=== PATIENT | female | born 1985 | race Caucasian/White ===

== ENCOUNTER → 2018-05-15 | Outpatient (CLI) | payer MEDICAID ==
--- NOTE | 2018-05-15 12:29 | MR ---
MRI CERVICAL AND THORACIC SPINE: CLINICAL HISTORY: Neck pain and white matter changes TECHNIQUE: Multiplanar, multisequence imaging of the cervical spine and thoracic spine was performed without IV contrast. COMPARISON: None FINDINGS: Sagittal images of the cervical spine show the craniocervical junction to appear within nor mal limits. The cervical and upper thoracic spinal cord is normal in course, caliber, and signal. V ertebral alignment is anatomic. The vertebral body and intravertebral disk heights are normal. The bone marrow signal intensity is within normal limits. There is a focal disc herniation with 6 mm caudal extrusion at C5-C6 without spinal canal stenosis no r neural foraminal narrowing. There are broad-based disc bulges and disc desiccation at C3-C4, C4-C5 and C6-C7. Axial images show there is no spinal canal stenosis, neural foraminal narrowing, or spinal cord compr omise at any cervical level. No significant degenerative disc disease, spinal canal stenosis, nor neural foraminal narrowing is se en throughout the thoracic spine. Thoracic spine vertebral bodies maintain normal vertebral body heig hts and alignment. No focal disc herniation. IMPRESSION: 1. Central disc herniation with 6 mm caudal extrusion at C5-C6. No resultant spinal canal stenosis no r neural foraminal narrowing. 2. No white matter change within the cervical nor thoracic spinal cord to suggest demyelinating plaqu e.
--- NOTE | 2018-05-15 12:39 | MR ---
EXAMINATION TYPE: MR brain wo/w con DATE OF EXAM: 05/15/2018 COMPARISON: Cervical and thoracic spine MRI of the same date. HISTORY: White matter changes / cervicalgia / Pain TECHNIQUE: Multiplanar, multisequence images of the brain and brainstem is performed without and with IV contras t, utilizing 6 mL intravenous Gadavist . FINDINGS: Diffusion weighted images demonstrate no evidence of a recent infarct or other diffusion ab normality. There is no extra-axial fluid collection or significant white matter signal abnormality. The ventricular system and cisternal spaces are normal in size and appearance. The brain volume is age appropriate. There are peglike cerebellar tonsils extending 9 mm beyond the foramen magnum (post contrast T1 sagittal image 73). There are pericallosal bilateral frontal white matter changes measuring 4 mm x 4 mm on the left and 4 mm x 2 mm on the right on FLAIR axial fat-sat image 22 on the left and 23 on the right. Midline stru ctures demonstrate normal morphology. Incidental note is made of a nonenhancing 3 mm pineal gland cys t. The craniocervical junction appears within normal limits. Post contrast images demonstrate no ab normal enhancement. The dural venous sinuses appear patent. Mild mucosal thickening is seen within th e ethmoid sinuses. The remaining visualized sinuses are clear and the globes are intact. IMPRESSION: 1. Pericallosal foci of white matter change suggesting demyelinating disease as these have a typical Mitchell finger appearance. No abnormal enhancement to suggest active demyelination. Overall no abnorma l intracranial enhancement. No optic nerve enhancement to suggest optic neuritis. 2. 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 No syrinx is seen.
== END | disposition home or self-care (01) ==
LOC: RADMRIMAIN 06:04
PROVIDERS: ATTEND Psychiatry & Neurology Neurology
DX: M50.222 Other cervical disc displacement at C5-C6 level (principal); R90.82 White matter disease, unspecified; M54.6 Pain in thoracic spine; Z88.0 Allergy status to penicillin
CPT/HCPCS: 70553; 72141; 72146; A9585

== ENCOUNTER → 2018-09-24 | Outpatient (CLI) | payer MEDICAID ==
[2018-09-24 17:01] LABS: Sex Horm Bind Glob 107.5 nmol/L (10.84-180.00)
== END | disposition home or self-care (01) ==
LOC: LABWHC1 10:31
PROVIDERS: ATTEND Clinical Nurse Specialist Women's Health
DX: E03.9 Hypothyroidism, unspecified (principal); R53.83 Other fatigue
CPT/HCPCS: 36415; 83036; 83525; 84270; 84402; 84439; 84481; 84482

== ENCOUNTER → 2018-11-13 | Outpatient (CLI) | payer MEDICAID ==
[2018-11-13 15:51] LABS: LDL Cholesterol,Calculated 55.2 mg/dL (0.0-131.0); VLDL Calculation 26.8 mg/dL (5.00-40.00)
[2018-11-13 16:09] LABS: T4, Free (Free Thyroxine) 0.8 ng/dL (0.80-1.80)
== END | disposition home or self-care (01) ==
LOC: LABWHC1 08:17
PROVIDERS: ATTEND Clinical Nurse Specialist Women's Health
DX: Z00.00 Encounter for general adult medical examination without abnormal findings (principal); E03.9 Hypothyroidism, unspecified
CPT/HCPCS: 36415; 80061; 84439; 84481; 84482

== ENCOUNTER → 2018-12-27 | Outpatient (CLI) | payer MEDICAID | END | disposition home or self-care (01) | LOC: LABWHC1 13:01 | PROVIDERS: ATTEND Clinical Nurse Specialist Women's Health | DX: E03.9 Hypothyroidism, unspecified (principal) | CPT/HCPCS: 36415; 84439; 84481; 84482 ==

== ENCOUNTER → 2020-04-08 | Outpatient (CLI) | payer MEDICAID | END | disposition home or self-care (01) | LOC: LABWHC1 08:28 | PROVIDERS: ATTEND Obstetrics & Gynecology | DX: E03.9 Hypothyroidism, unspecified (principal) | CPT/HCPCS: 36415; 84439; 84443; 84481; 84482 ==

== ENCOUNTER → 2020-10-08 | Outpatient (CLI) | payer MEDICAID | END | disposition home or self-care (01) | LOC: LABWHC1 09:21 | PROVIDERS: ATTEND Obstetrics & Gynecology | DX: E07.9 Disorder of thyroid, unspecified (principal) | CPT/HCPCS: 36415; 84439; 84443; 84481; 84482 ==

== ENCOUNTER 2024-01-22 00:50 | Emergency (ER) | payer MEDICAID ==
[2024-01-22 00:57] VITALS: TEMP 98.6
[2024-01-22] MEDS: diphenhydrAMINE 50 MG/ML 1 ML VIAL IVP STA (01:25)
[2024-01-22] MEDS: ONDANSETRON 4 MG/2 ML VIAL IVP STA (01:26)
[2024-01-22] MEDS: FAMOTIDINE 20 MG/2 ML VIAL IV STA (01:26)
[2024-01-22] MEDS: METOCLOPRAMIDE 5 MG/ML 2 ML VIAL IVP STA (01:32)
[2024-01-22 01:33] LABS: ALT 26 U/L (4-34); AST 76 U/L (14-36); African American GFR (CKD) >90 (>60 ml/min/1.73 sqM); Albumin 4.9 g/dL (3.5-5.0); Alkaline Phosphatase 26 U/L (38-126); Amylase 54 U/L (30-110); Anion Gap 9 mmol/L; Blood Urea Nitrogen 11 mg/dL (7-17); Calcium 9.8 mg/dL (8.4-10.2); Carbon Dioxide 21 mmol/L (22-30); Chloride 104 mmol/L (98-107); Glucose 109 mg/dL (74-99); Lipase 105 U/L (23-300); Non-African American GFR(CKD) >90 (>60 ml/min/1.73 sqM); Sodium 134 mmol/L (137-145); Total Bilirubin 1.6 mg/dL (0.2-1.3); Total Protein 8.1 g/dL (6.3-8.2)
--- NOTE | 2024-01-22 01:44 | ED ---
General Adult HPI <Les Blanco - Last Filed: 01/22/24 08:03> - General Source: patient Mode of arrival: ambulatory Limitations: no limitations <Susan Jsaon - Last Filed: 01/22/24 17:04> - General Chief complaint: Nausea/Vomiting/Diarrhea Stated complaint: Headache, Vomiting Time Seen by Provider: 01/22/24 01:05 - History of Present Illness Initial comments: Patient is a 38-year-old female G2, P1 presenting today for nausea, vomiting and headache. Patient states the last 4 days she has had persistent nausea but minimal vomiting. No diarrhea. Symptoms are improving yesterday however this morning patient woke up with a headache that is like a band across her head and had persistent nausea throughout the day. Patient did not have any Tylenol other than children's chewable Tylenol home so did provide herself with 200 mg of rectal Tylenol prior to arrival. She has not yet had a confirmatory US for her however did note crampy lower abdominal pain that began this evening. Denies vaginal bleeding or discharge. Deniues hamturia, dysuria. No black or bloody stools. No fevers. No changes in vision, slurred speech, new numbness or weakness. No dizziness or lightheadedness. States she has not had a headache like this before and did come on suddenly yesterday morning at ap proximately 6:40 AM, however N/V was occuring prior to today's TAVARES. First day of her last menstrual period was December 08. Denies vaginal bleeding or discharge. (Susan Jason) - Related Data Previous Rx's Medication Instructions Recorded Ondansetron [Zofran] 4 mg PO Q8HR PRN #10 tab 01/22/24 Allergies Allergy/AdvReac Type Severity Reaction Status Date / Time Penicillins Allergy Rash/Hives Verified 01/22/24 00:57 Review of Systems ROS Other: All systems not noted in ROS Statement are negative. <Les Blanco - Last Filed: 01/22/24 08:03> ROS Other: All systems not noted in ROS Statement are negative. Constitutional: Denies: fever, chills ENT: Denies: throat pain, congestion Respiratory: Denies: cough, dyspnea Cardiovascular: Denies: chest pain Gastrointestinal: Reports: abdominal pain, nausea, vomiting. Denies: diarrhea, constipation, melena, hematochezia Genitourinary: Denies: urgency, dysuria, hematuria, discharge Neurological: Reports: headache. Denies: weakness, numbness, paresthesias, confusion, vertigo <EnglishSusan - Last Filed: 01/22/24 17:04> ROS Statement: Those systems with pertinent positive or pertinent negative responses have been documented in the HPI. Past Medical History Past Medical History: No Reported History History of Any Multi-Drug Resistant Organisms: None Reported Past Surgical History: No Surgical Hx Reported Past Psychological History: No Psychological Hx Reported Smoking Status: Never smoker Past Alcohol Use History: None Reported Past Drug Use History: None Reported <Susan Jason - Last Filed: 01/22/24 17:04> General Exam Limitations: no limitations <Susan - Last Filed: 01/22/24 17:04> - General Exam Comments Initial Comments: PE: CONSTITUTIONAL: No apparent distress, well appearing SKIN: Warm, dry, no jaundice, hives or petechiae EYES: Pupils are equally round, extraocular movements intact without nystagmus, clear conjunctiva, non-icteric sclera HENT: Normocephalic, atraumatic, dry mucus membranes, oropharynx clear without exudates NECK: , Full range of motion, normal appearance PULMONARY: Clear to auscultation without wheezes, rhonchi, or rales, normal excursion, no accessory muscle use and no stridor CARDIOVASCULAR: Regular rate, rhythm, normal S1 and S2. No appreciated murmurs, rubs or gallops. Strong radial pulses with intact distal perfusion. No lower extremity edema GASTROINTESTINAL: Soft, tenderness ovation the left lower quadrant and suprapubic regions, active bowel sounds non-distended, no palpable masses, no rebound or guarding. No hepatosplenomegaly MUSCULOSKELETAL: Extremities have no gross deformity, no edema, redness, or swelling. NEUROLOGIC:_a/o x 3, GCS 15, normal mentation and speech. Moves all extremities x 4 without motor or sensory deficit PSYCHIATRIC:_normal mood and affect, thought process is clear and linear (Susan Jason) Course Vital Signs 01/22/24 01/22/24 01/22/24 00:55 04:57 08:25 Temperature 98.6 F Pulse Rate 107 H 73 78 Respiratory 20 18 18 Rate Blood Pressure 132/77 121/74 107/68 O2 Sat by Pulse 99 97 98 Oximetry Medical Decision Making - Lab Data Result diagrams: 01/22/24 01:16 01/22/24 01:16 <Les Blanco - Last Filed: 01/22/24 08:03> - Lab Data Result diagrams: 01/22/24 01:16 01/22/24 01:16 <Susan Jason - Last Filed: 01/22/24 17:04> - Medical Decision Making Was patient admitted / discharged? Hospital course, mention meds given and route, prescriptions, significant lab abnormalities, going to OR and other pertinent info. @ -Patient was signed out to me at 7 AM. Ultrasound of the gallbladder was pending I reviewed the gallbladder ultrasound and it showed no acute abnormality Undiagnosed new problem with uncertain prognosis? @ -No Drug Therapy requiring intensive monitoring for toxicity (Heparin, Nitro, Insulin, Cardizem)? @ -No Were any procedures done? @ -No Diagnosis/symptom? @ -Acute vomiting Acute, or Chronic, or Acute on Chronic? @ -Acute Uncomplicated (without systemic symptoms) or Complicated (systemic symptoms)? @ -Complicated Side effects of treatment? @ -No Exacerbation, Progression, or Severe Exacerbation? @ -No Poses a threat to life or bodily function? How? (Chest pain, [place], [place], pneumonia, PE, COPD, DKA, ARF, appy, cholecystitis, CVA, Diverticulitis, Homicidal, Suicidal, threat to staff... and all critical care pts) @ -No Diagnosis/symptom? @ -Intrauterine Acute, or Chronic, or Acute on Chronic? @ -Acute Uncomplicated (without systemic symptoms) or Complicated (systemic symptoms)? @ -Uncomplicated Side effects of treatment? @ -None Exacerbation, Progression, or Severe Exacerbation] @ -No Poses a threat to life or bodily function? @ -No (Les Blanco) Was pt. sent in by a medical professional or institution (, PA, SUBSTITUTE CROSSING GUARD, urgent care, hospital, or detention...) When possible be specific @ -No Did you speak to anyone other than the patient for history (EMS, parent, family, police, friend...)? What history was obtained from this source @ -No Did you review nursing and triage notes (agree or disagree)? Why? @ -I reviewed and agree with nursing and triage notes Were old charts reviewed (outside hosp., previous admission, EMS record, old EKG, old radiological studies, urgent care reports/EKG's, detention records)? Report findings @Old charts reviewed, most recent charts available/only chart available is MRI brain and cervical spine done 2018 Differential Diagnosis (chest pain, altered mental status, abdominal pain women, abdominal pain men, vaginal bleeding, weakness, fever, dyspnea, syncope, headache, dizziness, GI bleed, back pain, seizure, CVA, palpatations, mental health, musculoskeletal)? @ -Differential diagnose remains broad however top considerations include viral infection, hyperemesis gravidarum, nausea and vomiting of , ruptured ectopic , SAH, intracranial mass, this is not all inclusive list EKG interpreted by me (3pts min.). @ -As above X-rays interpreted by me (1pt min.). @ -None done CT interpreted by me (1pt min.). @ -I see no evidence of hemorrhage or mass effect U/S interpreted by me (1pt. min.). @ -None done What testing was considered but not performed or refused? (CT, X-rays, U/S, labs )? Why? @ -None What meds were considered but not given or refused? Why? @ -Considered toradol for TAVARES, however pt 7 weeks Did you discuss the management of the patient with other professionals (professionals i.e. , PA, SUB[employer] CR[employer]ING GUARD, lab, RT, psych nurse, social work faculty member, corporation lawyer, teacher, unclaimed property officer, caser up)? Give summary @ -No Was smoking cessation discussed for >3mins.? @ -No Was critical care preformed (if so, how long)? @ -No Were there social determinants of health that impacted care today? How? (Homelessness, low income, unemployed, alcoholism, drug addiction, transportation, low edu. Level, literacy, decrease access to med. care, fci, rehab)? @ -No Was there de-escalation of care discussed even if they declined (Discuss DNR or withdrawal of care, Hospice)? @ -No What co-morbidities impacted this encounter? (DM, HTN, Smoking, COPD, CAD, Cancer, CVA, ARF, Chemo, Hep., AIDS, mental health diagnosis, sleep apnea, morbid obesity)? @ -None Was patient admitted / discharged? Hospital course, mention meds given and route, prescriptions, significant lab abnormalities, going to OR and other pertinent info. @ -Hospital course Patient is a pleasant 38-year-old female G2, P1 currently 7 weeks presenting for 4 days nausea, vomiting and 1 day of headache. Known sick contact, patient's daughter was sick on Sunday with a "24-hour bug ". Patient seen and assessed on arrival. Overall well-appearing and in no acute distress. Nontoxic. Awake and alert without any focal neurologic deficits. Exam significant for dry mucous membranes and tenderness over left lower quadrant and suprapubic regions, active bowel sounds , nondistended without palpable masses. Differential diagnoses above. Given patient is neurologically intact, and headache is been ongoing since yesterday without neurologic decompensation, I have a low suspicion for subarachnoid hemorrhage or intracranial mass however will obtain CT brain. CBC, CMP, TSH, urinalysis beta quant, Cepheid testing ordered. D5 LR bolus, Zofran Reglan Benadryl, pepcid ordered. Patient agreeable with POC. US pelvis ordered to ensure no ectopic . US showed live intrauterine 6 weeks 6 days. Reviewed labs significant for AST 76, total bilirubin 1.6, this is elevated from prior. With new nausea and vomiting, I do feel an ultrasound would be warranted to ensure no evidence of biliary duct dilation/choledocholithiasis or cholecystitis. Updated patient to findings and discussed elevated LFTs and need for US. Ultrasound is not here until 7 AM and patent currently comfortable and nontoxic appearing, patient willing to waiting until 7 AM for ultrasound. TAVARES is improving however still present so will order PO tylenol. CT brain negative for hemorrhage or mass, did note chiari malformation and as patient's TAVARES began approximately 19 hours well logging captain mud analysis, I do recognized sensitivity for SAH hemorrhage decreases, however given improving symptoms and no neurologic deficits, I do not think patient's presentation is consistent with SAH and risk of LP outweighs benefit. I updated patient to findings, including chiari malformation, of which patient is aware of. Did discuss this with patient and she agrees with foregoing LP. On reassessment patient's TAVARES has resolved and she has been able to tolerate PO. She is currently awaiting ultrasound. Pt signed out to oncoming physician, Dr. Blanco, pending US. Please see his notes for further details of care. (Susan Jason) - Lab Data Lab Results 01/22/24 01/22/24 01/22/24 Range/Units 01:16 01:16 01:16 WBC 7.2 (3.8-10.6) k/uL RBC 4.20 (3.80-5.40) m/uL Hgb 12.9 (11.4-16.0) gm/dL Hct 38.3 (34.0-46.0) % MCV 91.0 (80.0-100.0) fL MCH 30.6 (25.0-35.0) pg MCHC 33.6 (31.0-37.0) g/dL RDW 12.1 (11.5-15.5) % Plt Count 186 (150-450) k/uL MPV 8.0 Neutrophils % 63 % Lymphocytes % 27 % Monocytes % 7 % Eosinophils % 0 % Basophils % 0 % Neutrophils # 4.5 (1.3-7.7) k/uL Lymphocytes # 1.9 (1.0-4.8) k/uL Monocytes # 0.5 (0-1.0) k/uL Eosinophils # 0.0 (0-0.7) k/uL Basophils # 0.0 (0-0.2) k/uL Sodium 134 L (137-145) mmol/L Potassium (3.5-5.1) mmol/L Chloride 104 (98-107) mmol/L Carbon Dioxide 21 L (22-30) mmol/L Anion Gap 9 mmol/L BUN 11 (7-17) mg/dL Creatinine 0.59 (0.52-1.04) mg/dL Est GFR (CKD-EPI)AfAm >90 (>60 ml/min/1.73 sqM) Est GFR (CKD-EPI)NonAf >90 (>60 ml/min/1.73 sqM) Glucose 109 H (74-99) mg/dL Calcium 9.8 (8.4-10.2) mg/dL Total Bilirubin 1.6 H (0.2-1.3) mg/dL AST 76 H (14-36) U/L ALT 26 (4-34) U/L Alkaline Phosphatase 26 L (38-126) U/L Total Protein 8.1 (6.3-8.2) g/dL Albumin 4.9 (3.5-5.0) g/dL Amylase 54 (30-110) U/L Lipase 105 (23-300) U/L TSH 3.120 (0.465-4.680) mIU/L HCG, Quant 33623.0 mIU/mL Urine Color Urine Appearance (Clear) Urine pH (5.0-8.0) Ur Specific [place] (1.001-1.035) Urine Protein (Negative) Urine Glucose (UA) (Negative) Urine Ketones (Negative) Urine Blood (Negative) Urine Nitrite (Negative) Urine Bilirubin (Negative) Urine Urobilinogen (<2.0) mg/dL Ur Leukocyte Esterase (Negative) Urine RBC (0-5) /hpf Urine WBC (0-5) /hpf Ur Squamous Epith Cells (0-4) /hpf Amorphous Sediment (None) /hpf Urine Bacteria (None) /hpf Influenza Type A (PCR) (Not Detectd) Influenza Type B (PCR) (Not Detectd) RSV (PCR) (Not Detectd) SARS-CoV-2 (PCR) (Not Detectd) Blood Type A Positive Blood Type Confirm Blood Type Recheck No Previous Record Bld Type Recheck Status CABO Indicated Antibody Screen NEGATIVE Spec Expiration Date 01/25/2024 - 231501/22/24 01/22/24 01/22/24 Range/Units 01:52 01:52 02:20 WBC (3.8-10.6) k/uL RBC (3.80-5.40) m/uL Hgb (11.4-16.0) gm/dL Hct (34.0-46.0) % MCV (80.0-100.0) fL MCH (25.0-35.0) pg MCHC (31.0-37.0) g/dL RDW (11.5-15.5) % Plt Count (150-450) k/uL MPV Neutrophils % % Lymphocytes % % Monocytes % % Eosinophils % % Basophils % % Neutrophils # (1.3-7.7) k/uL Lymphocytes # (1.0-4.8) k/uL Monocytes # (0-1.0) k/uL Eosinophils # (0-0.7) k/uL Basophils # (0-0.2) k/uL Sodium (137-145) mmol/L Potassium (3.5-5.1) mmol/L Chloride (98-107) mmol/L Carbon Dioxide (22-30) mmol/L Anion Gap mmol/L BUN (7-17) mg/dL Creatinine (0.52-1.04) mg/dL Est GFR (CKD-EPI)AfAm (>60 ml/min/1.73 sqM) Est GFR (CKD-EPI)NonAf (>60 ml/min/1.73 sqM) Glucose (74-99) mg/dL Calcium (8.4-10.2) mg/dL Total Bilirubin (0.2-1.3) mg/dL AST (14-36) U/L ALT (4-34) U/L Alkaline Phosphatase (38-126) U/L Total Protein (6.3-8.2) g/dL Albumin (3.5-5.0) g/dL Amylase (30-110) U/L Lipase (23-300) U/L TSH (0.465-4.680) mIU/L HCG, Quant mIU/mL Urine Color Colorless Urine Appearance Clear (Clear) Urine pH 7.5 (5.0-8.0) Ur Specific [place] 1.004 (1.001-1.035) Urine Protein Negative (Negative) Urine Glucose (UA) Negative (Negative) Urine Ketones Negative (Negative) Urine Blood Negative (Negative) Urine Nitrite Negative (Negative) Urine Bilirubin Negative (Negative) Urine Urobilinogen <2.0 (<2.0) mg/dL Ur Leukocyte Esterase Moderate H (Negative) Urine RBC 1 (0-5) /hpf Urine WBC 2 (0-5) /hpf Ur Squamous Epith Cells 2 (0-4) /hpf Amorphous Sediment Rare H (None) /hpf Urine Bacteria Many H (None) /hpf Influenza Type A (PCR) Not Detected (Not Detectd) Influenza Type B (PCR) Not Detected (Not Detectd) RSV (PCR) Not Detected (Not Detectd) SARS-CoV-2 (PCR) Not Detected (Not Detectd) Blood Type Blood Type Confirm A Positive Blood Type Recheck Bld Type Recheck Status Antibody Screen Spec Expiration Date Disposition Is patient prescribed a controlled substance at d/c from ED?: No Time of Disposition: 08:08 <Les Blanco - Last Filed: 01/22/24 08:03> <Susan Jason - Last Filed: 01/22/24 17:04> Clinical Impression: Acute vomiting, Intrauterine Disposition: HOME SELF-CARE Condition: Good Instructions (If sedation given, give patient instructions): Hyperemesis Gravidarum (ED), Acute Nausea and Vomiting (ED) Prescriptions: Ondansetron [Zofran] 4 mg PO Q8HR PRN #10 tab PRN Reason: Nausea And Vomiting Referrals: Salas Head MD [Primary Care Provider] - 1-2 days
[2024-01-22] MEDS: DEXTROSE 5%-LACTATED RINGERS 1,000 ML IV SCH (01:55)
[2024-01-22 01:59] LABS: Basophils % (A) 0 %; Eosinophils % (A) 0 %; HCT 38.3 % (34.0-46.0); HGB 12.9 gm/dL (11.4-16.0); Lymphocytes # (A) 1.9 k/uL (1.0-4.8); Lymphocytes % (A) 27 %; MCH 30.6 pg (25.0-35.0); MCHC 33.6 g/dL (31.0-37.0); Monocytes # (A) 0.5 k/uL (0-1.0); Monocytes % (A) 7 %; Neutrophils # (A) 4.5 k/uL (1.3-7.7); Neutrophils % (A) 63 %; Platelet Count 186 k/uL (150-450); RDW 12.1 % (11.5-15.5); WBC 7.2 k/uL (3.8-10.6)
[2024-01-22] MEDS: PYRIDOXINE 100 MG/ML 1 ML VIAL IVP STA (02:05)
--- NOTE | 2024-01-22 02:43 | CT ---
EXAM: CT Head Without Intravenous Contrast CLINICAL HISTORY: ITS.REASON CT Reason: new TAVARES, SAH? TECHNIQUE: Axial computed tomography images of the head/brain without intravenous contrast. CTDI is 28.8 mGy and DLP is 683 mGy-cm. This CT exam was performed using one or more of the following dose reduction techniques: automated exposure control, adjustment of the mA and/or kV according to patient size, and/or use of iterative reconstruction technique. COMPARISON: 05/14/2018 FINDINGS: Brain: No hemorrhage or mass effect. Cerebellar tonsillar ectopia 7 mm below the foramen magnum Ventricles: No hydrocephalus. Bones/joints: Unremarkable. Soft tissues: Unremarkable. Sinuses: No air fluid level. Mastoid air cells: Clear. IMPRESSION: No acute hemorrhage, hydrocephalus, or mass effect. Chiari I malformation
[2024-01-22 03:10] LABS: Amorphous Sediment,Urine Rare /hpf; Appearance,Urine Clear (Clear); Bacteria,Urine Many /hpf; Bilirubin,Urine Negative (Negative); Blood,Urine Negative (Negative); Color,Urine Colorless; Glucose,Urine (UA) Negative (Negative); Ketones,Urine Negative (Negative); Leukocyte Esterase,Urine Moderate (Negative); Nitrite,Urine Negative (Negative); PH, Urine 7.5 (5.0-8.0); Protein,Urine Negative (Negative); RBC,Urine 1 /hpf (0-5); Specific Gravity,Urine 1.004 (1.001-1.035); Squamous Epithelial Cell,Urine 2 /hpf (0-4); Urobilinogen,Urine <2.0 mg/dL (<2.0); WBC,Urine 2 /hpf (0-5)
--- NOTE | 2024-01-22 03:25 | US ---
EXAM: US , Transvaginal CLINICAL HISTORY: ITS.REASON US Reason: abd pain TECHNIQUE: Real-time transvaginal obstetrical ultrasound of the maternal pelvis and a first trimester with image documentation. Transvaginal imaging was used for better evaluation of the fetus and adnexa. COMPARISON: No relevant prior studies available. FINDINGS: Gestation: Single live intrauterine is identified. 6 weeks and 6 days. Heart rate 74 bpm. Placenta/amniotic fluid: Cannot be adequately evaluated due to the early gestational age. Uterus/cervix: No myometrial mass. Ovaries: Corpus luteal cyst left ovary. No mass. Free fluid: No free fluid. IMPRESSION: Single live intrauterine is identified. 6 weeks and 6 days. Heart rate 74 bpm.
[2024-01-22] MEDS: ACETAMINOPHEN TAB 500 MG TAB PO STA (05:50)
[2024-01-22 06:13] VITALS: RESP 18
--- NOTE | 2024-01-22 07:50 | US ---
EXAMINATION TYPE: US gallbladder DATE OF EXAM: 01/22/2024 COMPARISON: NONE CLINICAL INDICATION: Female, 38 years old with history of elevated T bili, AST, N/V; Nausea/vomiting x 2 days. Patient is . TECHNIQUE: Grayscale and color Doppler imaging of the right upper quadrant. FINDINGS: EXAM MEASUREMENTS: Liver Length: 14.5 cm Gallbladder Wall: 0.19 cm CBD: 0.41 cm Right Kidney: 12.2 x 6.0 x 4.5 cm GATE TENDER NOTES: Exam is limited due to gas. Pancreas: Slightly limited due to gas. Liver: Appears wnl Gallbladder: Appears anechoic Evidence for sonographic Gregorio's sign: No CBD: Portions seen appear wnl Right Kidney: No hydronephrosis or masses seen IMPRESSION: No discrete abnormality seen. [facility], , 01/22/2024 7:48 AM
[2024-01-22 08:27] VITALS: BP 107/68; PULSE 78
== END 2024-01-22 08:27 | disposition home or self-care (01) ==
LOC: EC 00:50
DX: O21.9 Vomiting of pregnancy, unspecified (principal); Z88.0 Allergy status to penicillin; Z11.52 Encounter for screening for COVID-19; Z3A.01 Less than 8 weeks gestation of pregnancy
CPT/HCPCS: 99284; 96375 ×4; 96365; 36415; 86900; 86901; 80053; 82150; 83690; 84443; 85025; 86850; 81001; 84702; 87636; 76801; 76705; 70450; J1200; J3415; J2765; J2405

== ENCOUNTER → 2024-05-02 | Outpatient (CLI) | payer MEDICAID ==
[2024-05-02 15:31] LABS: Testosterone 34.3 ng/dL (9.01-47.94)
[2024-05-02 15:32] LABS: T4, Free (Free Thyroxine) 0.85 ng/dL (0.80-1.80)
[2024-05-02 15:45] LABS: Thyroid Peroxidase Antibodies 10.5 U/mL (0.0-33.0)
[2024-05-02 15:46] LABS: Progesterone 51.2 ng/mL
== END | disposition home or self-care (01) ==
LOC: LABWHC1 07:29
PROVIDERS: ATTEND Obstetrics & Gynecology
DX: Z34.82 Encounter for supervision of other normal pregnancy, second trimester (principal); E03.9 Hypothyroidism, unspecified; R53.83 Other fatigue
CPT/HCPCS: 36415; 82105; 82626; 82627; 82670; 82677; 82950; 84144; 84270; 84403; 84432; 84439; 84443; 84481; 84482; 84702; 86336; 86376

== ENCOUNTER → 2024-10-06 | Outpatient (CLI) | payer MEDICAID ==
[2024-10-06 16:48] LABS: T4, Free (Free Thyroxine) 1.51 ng/dL (0.80-1.80)
[2024-10-06 17:08] LABS: Thyroid Peroxidase Antibodies 9.8 U/mL (0.0-33.0)
== END | disposition home or self-care (01) ==
LOC: LABWHC1 08:25
DX: E03.9 Hypothyroidism, unspecified (principal); R53.83 Other fatigue
CPT/HCPCS: 36415; 84439; 84443; 84481; 84482; 86376; 86800